=== PATIENT | male | born 1985 ===

== ENCOUNTER 2022-04-16 16:00 | Emergency (ER) | payer SELFPAY ==
[2022-04-16] MEDS ORDERED: KEFLEX250 MG PO (17:12)
== END 2022-04-16 17:47 | disposition home or self-care (01) ==
LOC: FER 16:00
DX: S70.352A Superficial foreign body, left thigh, initial encounter (principal); I10 Essential (primary) hypertension; Z23 Encounter for immunization; W45.0XXA Nail entering through skin, initial encounter; Y92.89 Other specified places as the place of occurrence of the external cause; Y99.0 Civilian activity done for income or pay; Z28.310 Unvaccinated for COVID-19
CPT/HCPCS: 73560; 90471; 90715